=== PATIENT | female | born 1955 | race Caucasian/White ===

== ENCOUNTER 2018-06-30 07:10 | Day surgery (SDC) | payer MEDICAID ==
[2018-06-30] MEDS ORDERED: MIDAZOLAM 1 MG/ML 2 ML INJ (11:16)
[2018-06-30] MEDS ORDERED: FAMOTIDINE 20 MG INJ (11:16)
[2018-06-30] MEDS ORDERED: PROPOFOL 20 ML (11:16)
[2018-06-30] MEDS ORDERED: ONDANSETRON 4 MG INJ (11:17)
[2018-06-30] MEDS ORDERED: LIDOCAINE 2% (SDV) 5 ML INJ (11:17)
[2018-06-30] MEDS ORDERED: FENTAnyl 50 MCG/ML VIAL (11:17)
[2018-06-30] MEDS ORDERED: DEXAMETHASONE 4 MG/ML 1 ML INJ (11:17)
[2018-06-30] MEDS ORDERED: CEFAZOLIN 1 GM INJ (11:17)
[2018-06-30] MEDS ORDERED: morphine (1 MG/ML) 10ML SYRINGE IV ×2 (11:30)
[2018-06-30] MEDS ORDERED: OXYCODONE/ACETAMINOPHEN (5/325) TAB PO ×2 (11:30)
[2018-06-30] MEDS ORDERED: LABETALOL HCL 20MG INJ IV (11:30)
[2018-06-30] MEDS ORDERED: FENTAnyl 50 MCG/ML VIAL IV ×2 (11:30)
[2018-06-30] MEDS ORDERED: HYDROmorphONE 1 MG/5 ML IV SYRINGE IV ×2 (11:30)
[2018-06-30] MEDS ORDERED: ALBUTEROL 0.083% (NEB) 2.5 MG/3 ML AMP HHN (11:30)
[2018-06-30] MEDS ORDERED: DIPHENHYDRAMINE 50 MG INJ IV (11:30)
[2018-06-30] MEDS ORDERED: PHENYLephrine (100 MCG/ML) 5ML SYG (11:48)
[2018-06-30] MEDS ORDERED: ACETAMINOPHEN 1000MG/100ML IV 100 ML (11:53)
[2018-06-30] MEDS ORDERED: EPHEDrine SULFATE 50 MG/5 ML SYG (11:56)
[2018-06-30] MEDS: ONDANSETRON 4 MG INJ IV (12:50)
[2018-06-30] MEDS: MEPERIDINE 25 MG INJ IV (12:50)
[2018-06-30] MEDS ORDERED: HYDROCODONE/APAP (7.5/325) TAB PO (13:00)
== END 2018-06-30 14:05 | disposition home or self-care (01) ==
LOC: SDS 07:10
DX: N60.21 Fibroadenosis of right breast (principal); I10 Essential (primary) hypertension
CPT/HCPCS: 19301; 88307